=== PATIENT | male | born 1965 | race Caucasian/White ===

== ENCOUNTER 2018-02-25 09:08 | Observation (INO) | payer OTHER ==
[~2018-02-25] VITALS: Ht 180.3 cm; Wt 88.5 kg
[2018-02-25] VITALS (12 sets, daily range): BP systolic 117–180; BP diastolic 75–96
[~2018-02-25 09:08] MED LIST: BACLOFEN10 MG PO; LAMICTAL XR300 MG PO; MULTIVITAMI1 PO; STOOL SOFTEN240 MG PO; STRATTERA60 MG PO
[2018-02-26] VITALS (14 sets, daily range): BP systolic 135–175; BP diastolic 85–108
[2018-02-26 05:20] LABS: HEMATOCRIT 53.9 % (39.0-50.0); HEMOGLOBIN 17.1 g/dl (14.0-18.0); IMMATURE GRANULOCYTES 0.4 % (0.0-1.0); MEAN CELL VOLUME 93.6 fL CALC (80.0-100.0); MEAN CORPUSCULAR HGB 29.7 pG CALC (26.0-32.0); MEAN CORPUSCULAR HGB CONC 31.7 g/L CALC (32.0-36.0); NEUT# 5.23 thou/uL (1.82-7.42); RED BLOOD COUNT 5.76 mill/uL (4.70-6.10); RED CELL DISTRI WIDTH 15.5 % (11.5-15.5)
[2018-02-26 05:44] LABS: ANION GAP 12 (6-22 (CALC)); BUN 13 mg/dL (9-20); BUN/CREATININE RATIO 17 (12-20 (CALC)); CARBON DIOXIDE 27 mmol/l (22-30); CHLORIDE 105 mmol/l (95-108); CREATININE 0.8 mg/dL (0.7-1.3); GFR > 60 ML/MIN (>=60 (CALC)); GFR FOR AFR.AMER. > 60 ML/MIN (>=60 (CALC)); POTASSIUM 3.9 mmol/l (3.5-5.1); SODIUM 140 mmol/l (137-146)
[2018-02-26] MEDS ORDERED: LISINOPRIL10 MG PO (09:24)
[2018-02-26] MEDS ORDERED: LOPRESSOR25 M1 PO (17:22)
[2018-02-26] MEDS ORDERED: XANAX0.25 MG PO (17:22)
== END 2018-02-26 18:45 | disposition home or self-care (01) | DRG 355 ==
LOC: ORM 09:08 → ICU 14:20
PROVIDERS: Nurse Practitioner Family; ADMIT Surgery; ATTEND Internal Medicine
PROC: 0WUF4JZ Supplement Abdominal Wall with Synthetic Substitute, Percutaneous Endoscopic Approach (ICD-10-PCS; principal; 2018-02-25)
DX: K42.9 Umbilical hernia without obstruction or gangrene (principal); I16.0 Hypertensive urgency; F10.20 Alcohol dependence, uncomplicated; F98.8 Other specified behavioral and emotional disorders with onset usually occurring in childhood and adolescence; F32.9 Major depressive disorder, single episode, unspecified; Z87.820 Personal history of traumatic brain injury; Z87.891 Personal history of nicotine dependence
CPT/HCPCS: J2710